=== PATIENT | male | born 1945 | race Caucasian/White ===

== ENCOUNTER 2016-06-23 09:06 | Emergency (ER) | payer MEDICARE, OTHER ==
[~2016-06-23 09:06] MED LIST: ADULT LOW DOSE81 MG PO; CALCIUM500 MG PO; COLACE100 MG PO; DEPAKOTE500 MG PO; DETROL2 MG PO; FLOMAX0.4 MG PO; KLONOPIN TAB 00.5 MG PO; MIRALAX17 GM PO; PRILOSEC OTC20 MG PO; SYNTHROID88 MCG PO; TRAZODONE HCL100 MG PO; ZESTRIL5 MG PO; ZOCOR20 MG PO
[2016-09-15] MEDS ORDERED: ASPIR 8181 MG PO (09:12)
[2016-09-15] MEDS ORDERED: MIRALAX17 GM PO (09:13)
[2016-09-15] MEDS ORDERED: PROTONIX40 MG PO (09:14)
[2016-09-15] MEDS ORDERED: FLOMAX 0.4 MG0.4 MG PO (09:15)
[2016-09-15] MEDS ORDERED: SYNTHROID88 MCG PO (09:16)
[2016-09-15] MEDS ORDERED: FLUPHENAZINE HC10 MG PO (09:17)
[2016-09-15] MEDS ORDERED: [UNRECOGNIZED DRUG - OTHER] TP (09:18)
[2016-09-15] MEDS ORDERED: VITAMIN D 11000 UNIT PO (09:19)
[2016-09-15] MEDS ORDERED: ZOCOR20 MG PO (09:19)
[2016-09-15] MEDS ORDERED: ZYPREXA20 MG PO (09:20)
== END 2016-06-23 10:35 | disposition home or self-care (01) ==
LOC: ER1 09:06
DX: T47.2X1A Poisoning by stimulant laxatives, accidental (unintentional), initial encounter (principal); T42.4X1A Poisoning by benzodiazepines, accidental (unintentional), initial encounter; I10 Essential (primary) hypertension; E78.5 Hyperlipidemia, unspecified
CPT/HCPCS: 99283

== ENCOUNTER → 2016-07-01 | Outpatient (CLI) | payer MEDICARE, OTHER ==
[~2016-07-01] MED LIST changes: +ASPIR 8181 MG PO; +FLOMAX 0.4 MG0.4 MG PO; +FLUPHENAZINE HC10 MG PO; +PROTONIX40 MG PO; +VITAMIN D 11000 UNIT PO; +ZYPREXA20 MG PO; +[UNRECOGNIZED DRUG - OTHER] TP
== END ==
LOC: KOH-I 09:34
DX: M81.0 Age-related osteoporosis without current pathological fracture (principal)
CPT/HCPCS: 77080

== ENCOUNTER 2021-08-14 11:53 | Emergency (ER) | payer MEDICARE, OTHER ==
[~2021-08-14 11:53] MED LIST changes: +AMITIZA 24 MCG24 MCG PO; +AMOX TR-K CLV1 EAC4 PO; +AUGMENTIN 875-1 EACH PO; +BACTROBAN OINT22 GM EXT; +BENADRYL ALLERG25 MG PO; +CLARITIN10 MG PO; +CLEOCIN HCL300 MG PO; +COLACE 100MG C100 MG PO; +CYANOCOBAL1000 MCG/1 INJ; +DESYREL 50 MG T50 MG PO; +DETROL LA 2 MG C2 MG PO; +DULCOLAX10 MG PR; +ECOTRIN81 MG PO; +ENULOSE10 GM/15 M PO; +FERROUS SULFAT325 MG PO; +HYDROCORTISONE TP; +HYDROCORTISONE30 G4 TP; +IMODIUM CAP 2 MG2 MG PO; +INDERAL TAB 1010 MG PO; +KEPPRA500 MG PO; +KLONOPIN0.5 MG PO; +KLONOPIN1 MG PO; +LEVAQUIN750 MG PO; +LEVOFLOXACIN500 MG PO; +MILK OF MAGNESI30 ML PO; +OLANZAPINE2.5 MG PO; +PROAMATINE 2.52.5 MG PO; +PROTEIN SUPPLEMENT PO; +SWEEN CREAM340 GM TP; +SYNTHROID112 MCG PO; +THERAGRAN M TAB1 EA PO; +TRAZODONE HCL150 MG PO; +TYLENOL 500 MG500 MG PO; +VITAMIN B-1000 MCG/M SC; -VITAMIN D 11000 UNIT PO; +VITAMIN D31000 UNIT PO; +ZYPREXA2.5 MG PO; -ZYPREXA20 MG PO; +ZYPREXA5 MG PO; +ZYPREXA7.5 MG PO
== END 2021-08-14 15:15 | disposition home or self-care (01) ==
LOC: ER1 11:53
DX: R05.9 Cough, unspecified (principal)
CPT/HCPCS: 71045; 99283